=== PATIENT | male | born 1980 | race Caucasian/White ===

== ENCOUNTER 2018-05-11 12:04 | Emergency (ER) | payer MEDICAID, OTHER ==
[~2018-05-11] VITALS: Ht 177.8 cm; Wt 86.4 kg
[~2018-05-11 12:04] MED LIST: HYDR-3875 PO
[2018-05-11] MEDS ORDERED: HYDROcodone/acetaminophen 5mg/325mg tablet PO ONE (15:15)
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
[2018-05-11] MEDS ORDERED: CYCL-1 PO (16:26)
[2018-05-11 16:45] VITALS: BP 144/81
== END 2018-05-11 16:46 | disposition home or self-care (01) ==
LOC: ER 12:05
DX: S16.1XXA Strain of muscle, fascia and tendon at neck level, initial encounter (principal); F12.10 Cannabis abuse, uncomplicated; M54.5 Low back pain; V43.92XA Unspecified car occupant injured in collision with other type car in traffic accident, initial encounter; Y93.89 Activity, other specified; Y92.488 Other paved roadways as the place of occurrence of the external cause; Y99.8 Other external cause status
CPT/HCPCS: 72125; 99284

== ENCOUNTER 2019-01-04 00:39 | Emergency (ER) | payer OTHER ==
[~2019-01-04] VITALS: Ht 177.8 cm; Wt 88.6 kg
[~2019-01-04 00:39] MED LIST changes: +CYCL-1 PO
[2019-01-04] MEDS ORDERED: magnesium 2GM in 50ml NS 50 ML IV ONE (00:50)
[2019-01-04] MEDS ORDERED: normal saline 1000ML IV soln IVB ONE (00:50)
[2019-01-04] MEDS ORDERED: adenosine 3mg/ml 2ml vial IV ONE ×3 (00:50→08:00)
--- NOTE | 2019-01-04 00:57 | NUR ---
Pt did not convert with adosine 6mg rapid IV but however, did convert with adenosine 12 mg rapid IV
[2019-01-04] MEDS ORDERED: normal saline 1000ml 1,000 ML IVB ONE (01:10)
[2019-01-04 01:15] LABS: BASOPHILS # (AUTO) 0.2 X10'3 (0-0.2); BASOPHILS % (AUTO) 1.3 % (0-1); EOSINOPHILS # (AUTO) 0.5 X10'3 (0-0.9); EOSINOPHILS % (AUTO) 3.2 % (0-6); HEMATOCRIT 47.6 % (42.0-52.0); HEMOGLOBIN 15.7 g/dl (14.0-17.9); LYMPHOCYTES # (AUTO) 2.3 X10'3 (1.1-4.8); LYMPHOCYTES % (AUTO) 15.9 % (21-51); MEAN CORPUSCULAR HEMOGLOBIN 30.2 PG (27.0-31.0); MEAN CORPUSCULAR HGB CONC 32.9 g/dL (33.0-36.5); MEAN CORPUSCULAR VOLUME 91.7 FL (78-98); MEAN PLATELET VOLUME 7.5 FL (7.4-10.4); MONOCYTES # (AUTO) 0.9 X10'3 (0-0.9); NEUTROPHILS # (AUTO) 10.6 X10'3 (1.8-7.7); NEUTROPHILS % (AUTO) 73.6 % (42-75); PLATELET COUNT 361 X10'3 (140-440); RED BLOOD COUNT 5.19 X10'6 (4.70-6.10); RED CELL DISTRIBUTION WIDTH 13.5 % (11.5-14.5); WHITE BLOOD COUNT 14.4 X10'3 (4.5-11.0)
[2019-01-04 01:19] LABS: ALANINE AMINOTRANSFERASE 38 U/L (12-78); ALBUMIN 3.5 G/DL (3.4-5.0); ALKALINE PHOSPHATASE 54 IU/L (46-116); ANION GAP 7 (8-16); ASPARTATE AMINO TRANSFERASE 30 U/L (10-37); BILIRUBIN,TOTAL 0.5 MG/DL (0.1-1.0); BLOOD UREA NITROGEN 13 MG/DL (7-18); BUN/CREATININE RATIO 8.7 (5.4-32.0); CALCIUM 8.7 MG/DL (8.5-10.1); CHLORIDE 104 MMOL/L (99-107); CREATININE 1.49 MG/DL (0.60-1.10); ETHANOL < 0.010 GM/DL (0.0-0.010); GLUCOSE 136 MG/DL (70-104); MAGNESIUM 2.2 MG/DL (1.5-2.4); POTASSIUM 3.4 MMOL/L (3.5-5.1); SODIUM 142 MMOL/L (135-145); TOTAL CARBON DIOXIDE 30.6 MMOL/L (24-32); eGFR 53 ML/MIN
[2019-01-04] MEDS ORDERED: potassium Cl 20 mEq SR tablet PO ONE (01:25)
[2019-01-04 01:38] VITALS: BP 129/91
[2019-01-04 02:40] LABS: PARTIAL THROMBOPLASTIN TIME 31 SECONDS (22-32)
== END 2019-01-04 01:41 | disposition home or self-care (01) ==
LOC: ER 00:40
DX: I47.1 Supraventricular tachycardia (principal); F15.10 Other stimulant abuse, uncomplicated; E87.6 Hypokalemia; F12.90 Cannabis use, unspecified, uncomplicated; F17.200 Nicotine dependence, unspecified, uncomplicated; Z79.899 Other long term (current) drug therapy
CPT/HCPCS: 36415; 71045; 80053; 80320; 83735; 84484; 85025; 85610; 85730; 93005; 96374; 99291; J0153; J3475; J7030

== ENCOUNTER 2019-02-25 02:51 | Emergency (ER) | payer MEDICAID, OTHER ==
[~2019-02-25] VITALS: Ht 177.8 cm; Wt 88.6 kg
--- NOTE | 2019-02-25 03:03 | NUR ---
0303 Dr. Pettit at bedside. Pt attempting to vagal w/ syringe 18g L-AC placed VS: 210 SVT, 99% ra, 19 resp, 123/86 = pt remains AOx4, c/o L-sided cp
[2019-02-25] MEDS ORDERED: normal saline 1000ml 1,000 ML IV ONE ×2 (03:05→03:25)
[2019-02-25] MEDS ORDERED: adenosine 3mg/ml 2ml vial IV ONE (03:05)
--- NOTE | 2019-02-25 03:08 | NUR ---
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 Pt remaining AOx4.
--- NOTE | 2019-02-25 03:12 | NUR ---
12mg IV Adenosine administered by Vasquez MILLER, flushed with NS. SVT -> NSR 90s.
--- NOTE | 2019-02-25 03:13 | NUR ---
EKG in progress.
--- NOTE | 2019-02-25 03:18 | NUR ---
XR in progress.
[2019-02-25] MEDS ORDERED: magnesium 2GM in 50ml NS 50 ML IV ONE (03:25)
[2019-02-25 03:29] LABS: BASOPHILS # (AUTO) 0.1 X10'3 (0-0.2); BASOPHILS % (AUTO) 0.5 % (0-1); EOSINOPHILS # (AUTO) 0.3 X10'3 (0-0.9); EOSINOPHILS % (AUTO) 1.7 % (0-6); HEMATOCRIT 48.8 % (42.0-52.0); HEMOGLOBIN 16.2 g/dl (14.0-17.9); LYMPHOCYTES # (AUTO) 2.6 X10'3 (1.1-4.8); LYMPHOCYTES % (AUTO) 14.6 % (21-51); MEAN CORPUSCULAR HEMOGLOBIN 30.5 PG (27.0-31.0); MEAN CORPUSCULAR HGB CONC 33.3 g/dL (33.0-36.5); MEAN CORPUSCULAR VOLUME 91.5 FL (78-98); MONOCYTES # (AUTO) 0.9 X10'3 (0-0.9); MONOCYTES % (AUTO) 5.1 % (2-12); NEUTROPHILS % (AUTO) 78.1 % (42-75); PLATELET COUNT 335 X10'3 (140-440); RED BLOOD COUNT 5.33 X10'6 (4.70-6.10); RED CELL DISTRIBUTION WIDTH 13.6 % (11.5-14.5); WHITE BLOOD COUNT 17.9 X10'3 (4.5-11.0)
--- NOTE | 2019-02-25 03:36 | NUR ---
Pt is lethargic but arousable and resting on gurney with eyes closed. 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 IVF infusing with supplemental IV Magnesium. Mom remains at bedside. Pending labs and XR results. Plan of care updated.
[2019-02-25 03:38] LABS: ALANINE AMINOTRANSFERASE 59 U/L (12-78); ALBUMIN/GLOBULIN RATIO 1.2 (1.1-1.5); ALKALINE PHOSPHATASE 55 IU/L (46-116); ANION GAP 6 (8-16); ASPARTATE AMINO TRANSFERASE 55 U/L (10-37); BILIRUBIN,TOTAL 0.9 MG/DL (0.1-1.0); BLOOD UREA NITROGEN 20 MG/DL (7-18); BUN/CREATININE RATIO 13.4 (5.4-32.0); CHLORIDE 105 MMOL/L (99-107); CREATININE 1.49 MG/DL (0.60-1.10); GLUCOSE 142 MG/DL (70-104); MAGNESIUM 2.2 MG/DL (1.5-2.4); POTASSIUM 3.9 MMOL/L (3.5-5.1); SODIUM 141 MMOL/L (135-145); TOTAL CARBON DIOXIDE 29.8 MMOL/L (24-32); TOTAL PROTEIN 7.4 G/DL (6.4-8.2); eGFR 53 ML/MIN
[2019-02-25] MEDS ORDERED: metoprolol succinate 25mg (24-HOUR) SR. Tablet PO ONE (03:50)
[2019-02-25 05:30] VITALS: BP 130/82
== END 2019-02-25 05:31 | disposition home or self-care (01) ==
LOC: ER 02:51
DX: I47.1 Supraventricular tachycardia (principal); F12.90 Cannabis use, unspecified, uncomplicated; F15.90 Other stimulant use, unspecified, uncomplicated; Z98.890 Other specified postprocedural states; Z79.899 Other long term (current) drug therapy
CPT/HCPCS: 36415; 71045; 80053; 83735; 85025; 92960; 93005; 96365; 96366; 96375; 99285; J0153; J3475; J7030; 99284

== ENCOUNTER 2021-09-24 11:50 | Emergency (ER) | payer MEDICAID, OTHER | END 2021-09-24 16:22 | disposition left against medical advice (07) | LOC: ER 11:51 | DX: M79.609 Pain in unspecified limb (principal); Z53.21 Procedure and treatment not carried out due to patient leaving prior to being seen by health care provider ==

== ENCOUNTER 2022-05-29 14:51 | Emergency (ER) | payer OTHER ==
[~2022-05-29] VITALS: Ht 177.8 cm; Wt 90.9 kg
[2022-05-29 15:00] VITALS: BP 171/93
[2022-05-29] MEDS ORDERED: magnesium citrate 296ml oral solution PO ONE (15:30)
[2022-05-29] MEDS ORDERED: polyethylene glycol 3350 17gm powd pack PO ONE (15:35)
== END 2022-05-29 16:25 | disposition home or self-care (01) ==
LOC: EEVIPCON 14:52 → ER 14:52
DX: Z02.89 Encounter for other administrative examinations (principal); F12.90 Cannabis use, unspecified, uncomplicated; F15.90 Other stimulant use, unspecified, uncomplicated; Z98.890 Other specified postprocedural states; Z72.89 Other problems related to lifestyle; Z79.899 Other long term (current) drug therapy
CPT/HCPCS: 74176; 99284

== ENCOUNTER 2023-05-10 23:23 | Emergency (ER) | payer OTHER ==
[~2023-05-10] VITALS: Ht 177.8 cm; Wt 93.6 kg
[2023-05-10] MEDS ORDERED: MIDAZolam 5mg/ml 2ml vial IV ONE (23:45)
[2023-05-11 00:05] LABS: ALANINE AMINOTRANSFERASE 52 U/L (12-78); ALBUMIN 3.8 G/DL (3.4-5.0); ALKALINE PHOSPHATASE 60 IU/L (46-116); ANION GAP 11 (8-16); ASPARTATE AMINO TRANSFERASE 44 U/L (10-37); BILIRUBIN,TOTAL 0.3 MG/DL (0.1-1.0); BLOOD UREA NITROGEN 20 MG/DL (7-18); BUN/CREATININE RATIO 19.4 (10.0-20.0); CALCIUM 8.8 MG/DL (8.5-10.1); CHLORIDE 106 MMOL/L (99-107); CREATININE 1.03 MG/DL (0.60-1.10); GLUCOSE 99 MG/DL (70-104); POTASSIUM 4.1 MMOL/L (3.5-5.1); SODIUM 140 MMOL/L (135-145); TOTAL CARBON DIOXIDE 22.7 MMOL/L (24-32); TOTAL PROTEIN 7.8 G/DL (6.4-8.2); eCRCL 98 ML/MIN; eGFR 80 ML/MIN
[2023-05-11 00:07] LABS: BASOPHILS # (AUTO) 0.1 X10'3 (0-0.2); BASOPHILS % (AUTO) 1.2 % (0-1); EOSINOPHILS # (AUTO) 0.4 X10'3 (0-0.9); HEMATOCRIT 42.8 % (42.0-52.0); HEMOGLOBIN 14.2 g/dl (14.0-17.9); LYMPHOCYTES # (AUTO) 1.8 X10'3 (1.1-4.8); LYMPHOCYTES % (AUTO) 18.9 % (21-51); MEAN CORPUSCULAR HEMOGLOBIN 29.7 PG (27.0-31.0); MEAN CORPUSCULAR HGB CONC 33.1 g/dL (33.0-36.5); MEAN CORPUSCULAR VOLUME 89.7 FL (78-98); MONOCYTES # (AUTO) 1.1 X10'3 (0-0.9); MONOCYTES % (AUTO) 11.3 % (2-12); NEUTROPHILS # (AUTO) 6.2 X10'3 (1.8-7.7); NEUTROPHILS % (AUTO) 64.6 % (42-75); PLATELET COUNT 270 X10'3 (140-440); RED BLOOD COUNT 4.77 X10'6 (4.70-6.10); RED CELL DISTRIBUTION WIDTH 15.7 % (11.5-14.5); WHITE BLOOD COUNT 9.5 X10'3 (4.5-11.0)
[2023-05-11 00:12] LABS: PRO BRAIN NATRIURETIC PEPTIDE 160 PG/ML (0-125)
[2023-05-11 00:16] VITALS: TEMP 98.4
[2023-05-11 01:03] LABS: MAGNESIUM 2.1 MG/DL (1.5-2.4)
[2023-05-11] MEDS ORDERED: aspirin 325mg tablet PO ONE (03:00)
[2023-05-11] MEDS ORDERED: normal saline 1000ml 1,000 ML IV ONE (03:05)
[2023-05-11] MEDS ORDERED: amiodarone 150mg/dext, iso-os 100 ML IV ONE (03:25)
[2023-05-11] MEDS: amiodarone/D5 360MG/200ML BAG 200 ML IV SCH ×2 (04:02→10:12)
[2023-05-11 05:14] LABS: URINE AMPHETAMINE SCREEN NEGATIVE (Neg); URINE BARBITUATE SCREEN NEGATIVE (Neg); URINE BENZODIAZEPINES SCREEN POSITIVE (Neg); URINE CANNABINOID SCREEN NEGATIVE (Neg); URINE COCAINE SCREEN NEGATIVE (Neg); URINE METHADONE SCREEN NEGATIVE (Neg); URINE OPIATE SCREEN NEGATIVE (Neg); URINE PHENCYCLIDINE SCREEN NEGATIVE (Neg)
[2023-05-11] MEDS ORDERED: acetaminophen 325mg tablet PO ONE (16:35)
[2023-05-11 19:27] VITALS: BP 123/69; PULSE 79; RESP 16; O2SAT 98
== END 2023-05-11 20:05 | disposition short-term general hospital (02) ==
LOC: EEVIPCON 23:23 → ER 23:23
DX: R00.0 Tachycardia, unspecified (principal); Z20.822 Contact with and (suspected) exposure to COVID-19; E86.0 Dehydration; F12.90 Cannabis use, unspecified, uncomplicated; F15.90 Other stimulant use, unspecified, uncomplicated; Z72.89 Other problems related to lifestyle; Z79.899 Other long term (current) drug therapy
CPT/HCPCS: 36415; 71045; 80053; 80305; 83735; 83880; 84484; 85025; 87811; 92960; 93005; 96365; 96366; 96375; 96376; 99291; 99292; J0282; J2250; J7030; 10120

== ENCOUNTER 2023-08-15 19:32 | Emergency (ER) | payer MEDICAID, OTHER ==
[~2023-08-15] VITALS: Ht 157.5 cm; Wt 90.9 kg
[2023-08-15 20:53] LABS: BASOPHILS # (AUTO) 0.1 X10'3 (0-0.2); BASOPHILS % (AUTO) 1.2 % (0-1); EOSINOPHILS # (AUTO) 0.2 X10'3 (0-0.9); EOSINOPHILS % (AUTO) 3.1 % (0-6); HEMATOCRIT 40.7 % (42.0-52.0); HEMOGLOBIN 13.7 g/dl (14.0-17.9); LYMPHOCYTES % (AUTO) 15.5 % (21-51); MEAN CORPUSCULAR HEMOGLOBIN 29.9 PG (27.0-31.0); MEAN CORPUSCULAR HGB CONC 33.6 g/dL (33.0-36.5); MEAN CORPUSCULAR VOLUME 89.2 FL (78-98); MEAN PLATELET VOLUME 7.7 FL (7.4-10.4); MONOCYTES # (AUTO) 0.7 X10'3 (0-0.9); MONOCYTES % (AUTO) 10.1 % (2-12); NEUTROPHILS # (AUTO) 4.6 X10'3 (1.8-7.7); NEUTROPHILS % (AUTO) 70.1 % (42-75); PLATELET COUNT 266 X10'3 (140-440); RED BLOOD COUNT 4.56 X10'6 (4.70-6.10); RED CELL DISTRIBUTION WIDTH 12.6 % (11.5-14.5); WHITE BLOOD COUNT 6.5 X10'3 (4.5-11.0)
[2023-08-15 21:17] LABS: ALBUMIN 3.8 G/DL (3.4-5.0); ANION GAP 9 (8-16); BLOOD UREA NITROGEN 14 MG/DL (7-18); BUN/CREATININE RATIO 13.7 (10.0-20.0); CHLORIDE 106 MMOL/L (99-107); CREATININE 1.02 MG/DL (0.60-1.10); GLUCOSE 109 MG/DL (70-104); POTASSIUM 3.8 MMOL/L (3.5-5.1); PRO BRAIN NATRIURETIC PEPTIDE 324 PG/ML (0-125); SODIUM 141 MMOL/L (135-145); TOTAL CARBON DIOXIDE 26.4 MMOL/L (24-32); eCRCL 74 ML/MIN; eGFR 80 ML/MIN
[2023-08-15] MEDS: aspirin 325mg tablet PO ONE (21:50)
[2023-08-15] MEDS: acetaminophen 325mg tablet PO ONE (22:44)
[2023-08-15] MEDS: buprenorphine/naloxone 8MG-2MG SUBlingual film SL ONE (23:57)
[2023-08-16 00:58] VITALS: BP 147/104; PULSE 92; RESP 20; TEMP 97.8; O2SAT 99
[2023-08-16] MEDS ORDERED: buprenorphine/naloxone 8MG-2MG SUBlingual film SL SCH (08:00)
== END 2023-08-16 01:03 | disposition home or self-care (01) ==
LOC: ER 19:33
DX: R07.89 Other chest pain (principal); F15.90 Other stimulant use, unspecified, uncomplicated; F12.90 Cannabis use, unspecified, uncomplicated; Z79.899 Other long term (current) drug therapy
CPT/HCPCS: 36415; 71045; 80048; 83880; 84484; 85025; 93005; 99285